=== PATIENT | female | born 1990 | race Two or more races ===

== ENCOUNTER 2019-04-30 21:13 | Emergency (ER) | payer OTHER ==
[~2019-04-30] VITALS: Ht 154.9 cm; Wt 47.6 kg
--- NOTE | 2019-04-30 21:50 | NUR ---
URINE COLLECTED AND SENT TO LAB
[2019-04-30] MEDS ORDERED: ONDANSETRON HCL/PF 4 MG/2 ML VIAL ONE ×2 (21:57→23:55)
[2019-04-30] MEDS ORDERED: IV NS 0.9% 1,000 ML BAG IV ONE (22:00)
[2019-04-30] MEDS ORDERED: KETOROLAC TROMETHAMINE INJ 30 MG/ML VIAL IV ONE (22:00)
[2019-04-30] MEDS ORDERED: ONDANSETRON HCL/PF 4 MG/2 ML VIAL IVP ONE (22:00)
[2019-04-30 22:03] LABS: BASOPHILS % (AUTO) 0.3 % (0.0-2.0); HEMATOCRIT 41 % (33-45); HEMOGLOBIN 13.3 g/dL (11.5-14.8); LYMPHOCYTES # (AUTO) 0.5 /CMM (0.8-4.8); LYMPHOCYTES % (AUTO) 4.9 % (20.0-44.0); MEAN CORPUSCULAR HGB CONC 32 g/dl (31.0-36.0); MEAN CORPUSCULAR VOLUME 87 fL (82-100); MONOCYTES # (AUTO) 0.9 /CMM (0.1-1.30); MONOCYTES % (AUTO) 9.5 % (2.0-12.0); NEUTROPHILS # (AUTO) 8.2 /CMM (1.8-8.9); NEUTROPHILS % (AUTO) 85.3 % (43.0-81.0); PLATELET COUNT (AUTO) 181 /CMM (150-450); RED BLOOD CELL COUNT(AUTO) 4.73 MIL/uL (4.0-5.2); WHITE BLOOD COUNT (AUTO) 9.6 K/uL (4.3-11.0)
--- NOTE | 2019-04-30 22:11 | NUR ---
PT BIB MOM TO ER C/O ABDOMINAL PAIN W/ FLU-LIKE SYMPTOMS. PT HAS BEEN HAVING FLU LIKE SYMPTOMS W/ FEVER ON Sunday04/28/2019. SINCE YESTERDAY, PATIENT HAS VOMITING AND NAUSEA. PT STATES SHE WAS UNABLE TO EAT, DRANK MINIMAL AMOUNT OF WATER, AND HAS BEEN DRY HEAVING. AAOX4. NO SOB. BREATHING EVENLY AND UNLABORED. CONNECTED TO MONITOR MOTHER AT BEDSIDE.
[2019-04-30 22:12] LABS: CALCIUM, SERUM 9.8 mg/dL (8.5-10.1); CREATININE 0.7 mg/dL (0.6-1.3); POTASSIUM 3.5 mmol/L (3.5-5.1)
--- NOTE | 2019-04-30 22:13 | NUR ---
BLOOD DRAWN AND SENT TO LAB
[2019-04-30 22:19] LABS: APPEARANCE,URINE Clear (CLEAR); BILIRUBIN,URINE SMALL (NEGATIVE); BLOOD, URINE Moderate Ery/uL (NEGATIVE); COLOR,URINE Dark (YELLOW); KETONES,URINE 15 (NEGATIVE); LEUKOCYTE ESTERASE ,URINE Negative (NEGATIVE); NITRITE, URINE Negative (NEGATIVE); PH,URINE 5.5 (5.0-8.0); PROTEIN,URINE 30 mg/dl (NEGATIVE); UGLUCOSE Negative (NEGATIVE)
[2019-04-30 22:19] LABS: ALBUMIN 4.4 g/dL (3.4-5.0); BILIRUBIN,DIRECT 0.1 mg/dL (0.0-0.2); BILIRUBIN,TOTAL 0.6 mg/dL (0.2-1.0); TOTAL PROTEIN, SERUM 8.3 g/dL (6.4-8.2)
[2019-04-30] MEDS ORDERED: KETOROLAC TROMETHAMINE 15 MG/ML VIAL ONE (22:35)
--- NOTE | 2019-04-30 22:38 | NUR ---
RAPID FLU SPECIMEN SENT TO LAB
--- NOTE | 2019-04-30 22:42 | NUR ---
US AT BEDSIDE
[2019-04-30 23:30] LABS: BACTERIA,URINE Few /HPF (None Seen); SQUAMOUS EPITHELIAL CELL,UR Few /HPF (None Seen)
[2019-05-01] MEDS ORDERED: ONDANSETRON HCL/PF 4 MG/2 ML VIAL IV ONE
--- NOTE | 2019-05-01 00:19 | NUR ---
PATIENT GIVEN PRESCRIPTION AND EXPLAINED W/ MOM AT BEDSIDE
[2019-05-01 00:30] VITALS: BP 126/67
--- NOTE | 2019-05-01 00:30 | NUR ---
IV removed. Catheter intact and site benign. Pressure and 4x4 applied to site. No bleeding noted.Patient discharged to home in stable condition. Written and verbal after care instructions given. Patient verbalizes understanding of instruction.
== END 2019-05-01 00:31 | disposition home or self-care (01) ==
LOC: ER 21:14
DX: J11.1 Influenza due to unidentified influenza virus with other respiratory manifestations (principal); R11.2 Nausea with vomiting, unspecified; Z88.1 Allergy status to other antibiotic agents
CPT/HCPCS: 36415; 76705; 80048; 80074; 80076; 81001; 83690; 84703; 85025; 87086; 87804 ×2; 96361; 96374; 96375; 96376; 99284; J1885; J2405 ×2; J7030; 81000-TC

== ENCOUNTER 2019-11-10 14:32 | Emergency (ER) | payer OTHER ==
[~2019-11-10] VITALS: Ht 154.9 cm; Wt 47.6 kg
--- NOTE | 2019-11-10 14:50 | NUR ---
patient came in to the er c/o headache x 6 days, takes imetrix but not helping. On room air, breathing evenly and unlabored. connected to the monitor and pulse ox. kept comfortable, will continue to monitor accordingly.
[2019-11-10] MEDS ORDERED: METOCLOPRAMIDE HCL 10 MG/2 ML VIAL IV ONE (15:00)
[2019-11-10] MEDS ORDERED: IV NS 0.9% 1,000 ML BAG IV ONE (15:00)
[2019-11-10] MEDS ORDERED: KETOROLAC TROMETHAMINE INJ 30 MG/ML VIAL IV ONE (15:00)
[2019-11-10] MEDS ORDERED: KETOROLAC TROMETHAMINE INJ 30 MG/ML VIAL ONE (15:03)
[2019-11-10] MEDS ORDERED: METOCLOPRAMIDE HCL 10 MG/2 ML VIAL ONE (15:03)
[2019-11-10 16:47] VITALS: BP 126/61
--- NOTE | 2019-11-10 16:47 | NUR ---
Patient discharged to home in stable condition. Written and verbal after care instructions given. Patient verbalizes understanding of instruction.IV removed. Catheter intact and site benign. Pressure and 4x4 applied to site. No bleeding noted.
== END 2019-11-10 16:47 | disposition home or self-care (01) ==
LOC: ER 14:35
DX: G43.909 Migraine, unspecified, not intractable, without status migrainosus (principal); E86.0 Dehydration; R00.0 Tachycardia, unspecified; J45.909 Unspecified asthma, uncomplicated; Z88.1 Allergy status to other antibiotic agents
CPT/HCPCS: 84703; 96361; 96374; 96375; 99284; J1885; J2765; J7030

== ENCOUNTER 2020-03-07 13:31 | Emergency (ER) | payer OTHER ==
[~2020-03-07] VITALS: Ht 154.9 cm; Wt 47.6 kg
--- NOTE | 2020-03-07 13:46 | NUR ---
CAME FOR WORSENING HEADACHE X 3 DAYS, WORST TODAY. TO ER BED 16, HOOKED TO MONITOR, CHANGED TO HOSP GOWN, WARM BLANKET PROVIDED, PATIENT AAO x 4, BREATHING EVEN AND UNLABORED, AWAITING MD LAGUNAS.
--- NOTE | 2020-03-07 14:32 | NUR ---
DR LEWIS AT BEDSIDE FOR EVAL.
[2020-03-07] MEDS ORDERED: METOCLOPRAMIDE HCL 10 MG/2 ML VIAL ONE (14:45)
[2020-03-07] MEDS ORDERED: IV NS 0.9% 1,000 ML IV ONE (15:00)
[2020-03-07] MEDS ORDERED: METOCLOPRAMIDE HCL 10 MG/2 ML VIAL IV ONE (15:00)
[2020-03-07 15:09] LABS: BASOPHILS # (AUTO) 0.1 /CMM (0.0-0.2); BASOPHILS % (AUTO) 1.5 % (0.0-2.0); EOSINOPHILS % (AUTO) 2.8 % (0.0-6.0); HEMATOCRIT 39 % (33-45); HEMOGLOBIN 12.7 g/dL (11.5-14.8); LYMPHOCYTES # (AUTO) 0.6 /CMM (0.8-4.8); LYMPHOCYTES % (AUTO) 14.7 % (20.0-44.0); MEAN CORPUSCULAR HGB CONC 32 g/dl (31.0-36.0); MEAN CORPUSCULAR VOLUME 88 fL (82-100); MONOCYTES # (AUTO) 0.3 /CMM (0.1-1.30); MONOCYTES % (AUTO) 8.6 % (2.0-12.0); NEUTROPHILS # (AUTO) 2.9 /CMM (1.8-8.9); NEUTROPHILS % (AUTO) 72.4 % (43.0-81.0); PLATELET COUNT (AUTO) 203 /CMM (150-450); RED BLOOD CELL COUNT(AUTO) 4.46 MIL/uL (4.0-5.2); WHITE BLOOD COUNT (AUTO) 4.1 K/uL (4.3-11.0)
[2020-03-07 15:18] LABS: CALCIUM, SERUM 9.7 mg/dL (8.5-10.1); CREATININE 0.7 mg/dL (0.6-1.3); POTASSIUM 3.9 mmol/L (3.5-5.1)
[2020-03-07 16:33] VITALS: BP 115/64
== END 2020-03-07 16:33 | disposition home or self-care (01) ==
LOC: ER 13:34
DX: G43.909 Migraine, unspecified, not intractable, without status migrainosus (principal); Z88.1 Allergy status to other antibiotic agents
CPT/HCPCS: 36415; 80048; 85025; 96374; 99283; J2765; J7030 ×2